=== PATIENT | female | born 1990 | race African-American/Black ===

== ENCOUNTER 2019-04-04 09:52 | Emergency (ER) | payer OTHER ==
[~2019-04-04] VITALS: Ht 170.2 cm; Wt 75.0 kg
[2019-04-04 09:53] VITALS: BP 144/80
[2019-04-04] MEDS ORDERED: IBUP-1022 PO (10:56)
[2019-04-04] MEDS ORDERED: ROBA500T PO (10:56)
== END 2019-04-04 11:04 | disposition home or self-care (01) ==
LOC: M ED 09:52
DX: S16.1XXA Strain of muscle, fascia and tendon at neck level, initial encounter (principal); V49.49XA Driver injured in collision with other motor vehicles in traffic accident, initial encounter; Y92.410 Unspecified street and highway as the place of occurrence of the external cause